=== PATIENT | female | born 1995 | race Caucasian/White ===

== ENCOUNTER 2019-04-15 22:41 | Emergency (ER) | payer OTHER ==
[2019-04-15 23:00] VITALS: O2SAT 99
--- NOTE | 2019-04-15 23:19 | C.PDOC ---
History Of Present Illness 23 year old female presents with intermittent nausea and vomiting for the past month. Patient states she was diagnosed with "bacteria in the stomach" a week ago by her doctor, had the follow up visit today and started on omeprazole, amoxicillin, clarithromycin, colace, ferrous sulfate, and ascorbic acid but was only able to tolerate one pill due to nausea and vomiting. She states she has been busy with work and school so only up until recently was she able to get evaluated. Denies fever or chills. Patient has known Hx of anemia. Time Seen by Provider: 04/15/19 23:03 Chief Complaint (Nursing): Abdominal Pain History Per: Patient History/Exam Limitations: no limitations Onset/Duration Of Symptoms: Days, Intermittent Episodes Current Symptoms Are (Timing): Still Present Associated Symptoms: Nausea, Vomiting. denies: Fever, Chills Exacerbating Factors: None Alleviating Factors: None Recent travel outside of the [place]: No Abnormal Vaginal Bleeding: No Past Medical History Reviewed: Historical Data, Nursing Documentation, Vital Signs Vital Signs: Last Vital Signs Temp 98.4 F 04/15/19 22:45 Pulse 87 04/15/19 22:45 Resp 20 04/15/19 22:45 BP 120/81 04/15/19 22:45 Pulse Ox 99 04/15/19 22:45 Primary Care Provider: Non [facility] Provider, Surgical History: Tonsillectomy Family History: States: Unknown Family Hx - Social History Hx Alcohol Use: No Hx Substance Use: Yes - Immunization History Hx Tetanus Toxoid Vaccination: No Hx Influenza Vaccination: No Hx Pneumococcal Vaccination: No Review Of Systems Except As Marked, All Systems Reviewed And Found Negative. Constitutional: Negative for: Fever, Chills Gastrointestinal: Positive for: Nausea, Vomiting Physical Exam - Physical Exam Appears: Non-toxic, Other (Moderate distress) Skin: Normal Color, Warm, No Jaundice Head: Atraumatic, Normacephalic Eye(s): bilateral: Normal Inspection Oral Mucosa: Moist Chest: Symmetrical, No Tenderness Cardiovascular: Rhythm Regular Respiratory: Normal Breath Sounds, No Rales, No Rhonchi, No Wheezing Gastrointestinal/Abdominal: Soft, No Tenderness Back: No CVA Tenderness Neurological/Psych: Oriented x3, Normal Speech ED Course And Treatment - Laboratory Results Result Diagrams: 04/15/19 23:42 04/15/19 23:42 Urine POC: Negative O2 Sat by Pulse Oximetry: 99 (Room air) Pulse Ox Interpretation: Normal Progress - Re-Evaluation Re-evaluation Note: 04/16/19 00:06 IVF IN PROGRESS. APPEARS IMPROVED COMPARED TO INITIAL 04/16/19 00:34 NV RESOLVED. STILL W EPIG PAIN. SOFT NT ND NO R/G. AMBUL WO DIFF. PENDING POC - Data Reviewed Data Reviewed: Lab, Old records Medical Decision Making Medical Decision Making: Plan: * Blood work * UA * Morphine * Pepcid * Protonix * Zofran * IV fluids Disposition Counseled Patient/Family Regarding: Studies Performed, Diagnosis, Need For Followup, Rx Given - Disposition Referrals: YOUR,PMD [Other] Disposition: HOME/ ROUTINE Disposition Time: 00:52 Condition: IMPROVED Prescriptions: Metoclopramide [Reglan] 5 mg PO TID PRN #12 tab PRN Reason: Nausea/Vomiting Instructions: Gastritis (DC), H. pylori Infection (DC) Forms: [employer] ([place]), School Excuse - Clinical Impression Clinical Impression: Abdominal pain, Nausea, Vomiting - Scribe Statement The provider has reviewed the documentation as recorded by the Scribimelda Modi All medical record entries made by the Scribe were at my direction and personally dictated by me. I have reviewed the chart and agree that the record accurately reflects my personal performance of the history, physical exam, medical decision making, and the department course for this patient. I have also personally directed, reviewed, and agree with the discharge instructions and disposition.
[2019-04-15] MEDS ORDERED: Sodium Chloride 0.9% 1,000 ML ONE (23:41)
[2019-04-15 23:49] LABS: BASO % 0.2 % (0.0-2.0); EOS # 0.2 K/uL (0.0-0.7); EOS % 1.3 % (0.0-4.0); HEMOGLOBIN 11.3 g/dL (11.0-16.0); LYMPH # 1.6 K/uL (1.0-4.3); MEAN CELL VOLUME 78.8 fL (81.0-99.0); MEAN CORPUSCULAR HEMOGLOBIN 26.1 pg (27.0-31.0); MEAN CORPUSCULAR HGB CONC 33.1 g/dL (33.0-37.0); MEAN PLATELET VOLUME 9.6 fL (7.2-11.7); MONO # 0.9 K/uL (0.0-0.8); MONO % 5.8 % (0.0-10.0); NEUT # 12.2 K/uL (1.8-7.0); NEUT % 81.7 % (50.0-75.0); RBC 4.31 Mil/uL (3.80-5.20); RED CELL DISTRIBUTION WIDTH 19.3 % (11.5-14.5); WHITE BLOOD COUNT 14.9 K/uL (4.8-10.8)
[2019-04-16 00:06] LABS: BLOOD UREA NITROGEN 9 mg/dL (7-17); CALCIUM 10.2 mg/dl (8.6-10.4); GFR NON-AFRICAN AMERICAN > 60
[2019-04-16] MEDS ORDERED: Alum-Mag Hydrox-Simethicone Susp (30 mL) PO STA (00:34)
[2019-04-16] MEDS ORDERED: Alum-Mag Hydrox-Simethicone Susp (30 mL) ONE (00:57)
[2019-04-16 01:09] VITALS: BP 135/73; PULSE 68; RESP 18; TEMP 98.1
[2019-04-16 01:59] LABS: SQUAMOUS EPITHIAL 13 /hpf (0-5); URINE BACTERIA OCC (<OCC); URINE BILIRUBIN NEGATIVE (NEGATIVE); URINE BLOOD NEGATIVE (NEGATIVE); URINE CLARITY Hazy (Clear); URINE COLOR Amber (YELLOW); URINE GLUCOSE (UA) NORMAL (Normal); URINE LEUKOCYTE ESTERASE 2+ Leu/uL (Negative); URINE PROTEIN 1+ mg/dL (NEGATIVE); URINE UROBILINOGEN NORMAL mg/dL (0.2-1.0)
== END 2019-04-16 01:09 | disposition home or self-care (01) ==
LOC: C.ER 22:41
DX: R11.2 Nausea with vomiting, unspecified (principal); R10.9 Unspecified abdominal pain
CPT/HCPCS: 80048; 81001; 81025; 85025; 96361; 96374; 96375; 99284; C9113; J2270; J2405; J7030